=== PATIENT | female | born 1990 | race Caucasian/White ===

== ENCOUNTER 2018-08-02 09:32 | Emergency (ER) | payer SELFPAY ==
[2018-08-02 09:45] VITALS: TEMP 97.9
[2018-08-02] MEDS ORDERED: KETOROLAC TROMETHAMINE INJ 30 MG/ML VIAL IM ONE (09:53)
[2018-08-02] MEDS ORDERED: ALUM & MAG HYDROX-SIMETHICONE 30 ML, LIDOCAINE VISCOUS 2% 15 ML PO ONE ×2 (09:53)
[2018-08-02] MEDS ORDERED: LIDOCAINE HCL 2% (MOUTH-THROAT) 15 ML UD ONE (09:54)
[2018-08-02] MEDS ORDERED: ALUM & MAG HYDROX-SIMETHICONE 30 ML UD ONE (09:54)
--- NOTE | 2018-08-02 10:44 | RAD ---
EXAM DESCRIPTION: Abdomen Series CLINICAL HISTORY: ruq pain COMPARISON: None FINDINGS: Frontal view of the chest and supine and upright images of the abdomen were submitted. Cardiac silhouette is within normal limits. There is no focal parenchymal or pleural disease. There is no free air in the abdomen. There is no evidence of bowel obstruction. Moderate stool is in the colon. IMPRESSION: Constipation. Electronically signed by: Robbin Mason 08/02/2018 10:43 AM CDT
[2018-08-02] MEDS ORDERED: MAGNESIUM HYDROXIDE 30 ML UD PO ONE (10:48)
--- NOTE | 2018-08-02 10:51 | ED.PDOC ---
History of Present Illness - General Chief Complaint: General Stated Complaint: right sided rib/abdominal pain Time Seen by Provider: 08/02/18 09:47 Source: patient Exam Limitations: no limitations - History of Present Illness Initial Comments: the patient is a 28-year-old female presenting to the emergency room secondary to right upper abdominal pain for the last 36 hours. She has had some significant gas. No nausea or vomiting. Mild epigastric discomfort. No difficulty with oral intake. No diarrhea. No fevers. No cough or shortness of breath. No upper respiratory tract symptoms and no urinary symptoms. Timing/Duration: unsure Severity: moderate Improving Factors: nothing Worsening Factors: nothing Associated Symptoms: denies symptoms Allergies/Adverse Reactions: Allergies NO KNOWN ALLERGY Allergy (Verified 08/02/18 09:44) Home Medications: Ambulatory Orders NK [NK] 08/02/18 Review of Systems - Review of Systems Constitutional: States: no symptoms reported EENTM: States: no symptoms reported Respiratory: States: no symptoms reported Cardiology: States: no symptoms reported Gastrointestinal/Abdominal: States: abdominal pain Genitourinary: States: no symptoms reported Musculoskeletal: States: no symptoms reported Skin: States: no symptoms reported Neurological: States: no symptoms reported Endocrine: States: no symptoms reported All other Systems: No Change from Baseline Past Medical History (General) - Patient Medical History Hx Stroke: No Hx Congestive Heart Failure: No Hx Diabetes: No Surgical History: no surgical history - Vaccination History Hx Influenza Vaccination: Yes - Social History Hx Tobacco Use: Yes - Female History Patient is a Female of Child Bearing Age (10 -59 yrs old): Yes Family Medical History - Family History Mother Family History: Unknown Living Status: Still Living Physical Exam - Physical Exam General Appearance: Alert, No apparent distress Eye Exam: bilateral normal Ears, Nose, Throat: normal ENT inspection, normal pharynx Neck: full range of motion, supple Respiratory: lungs clear, normal breath sounds, no respiratory distress, no accessory muscle use Cardiovascular/Chest: normal peripheral pulses, regular rate, rhythm, no edema Peripheral Pulses: radial,right: 2+, radial,left: 2+, dorsalis pedis,right: 2+, dorsalis pedis,left: 2+ Gastrointestinal/Abdominal: soft, other - mild right upper quadrant discomfort palpation. No rebound or peritoneal signs. No skin changes. No palpable mass. 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 Blood work and x-ray as well as urinalysis are reassuring. X- ray does confirm significant constipation which will be targeted. The patient is given a dose of milk of magnesia here. I would recommend that she increase her fluid intake today and start taking MiraLAX daily for at least the next week. ER warnings were given. If she is still having discomfort after getting cleaned out then additional workup may be warranted. Keep routine follow-up with primary care doctor otherwise. - Results/Orders Results/Orders: acute abdominal series is negative for any acute pathology. significant constipation is seen. Laboratory Results - last 24 hr 08/02/18 08/02/18 08/02/18 10:06 10:06 10:06 WBC 6.9 RBC 4.10 L Hgb 12.8 Hct 38.1 MCV 92.9 MCH 31.2 H MCHC 33.6 RDW 12.3 Plt Count 269 MPV 7.7 Absolute Neuts (auto) 4.00 Absolute Lymphs (auto) 2.30 Absolute Monos (auto) 0.50 Absolute Eos (auto) 0.10 Absolute Basos (auto) 0.00 Neutrophils % 58.3 Lymphocytes % 33.1 Monocytes % 6.6 Eosinophils % 1.4 Basophils % 0.6 Sodium 137 Potassium 3.7 Chloride 103 Carbon Dioxide 29 Anion Gap 8.7 L BUN 6 L Creatinine 0.57 L BUN/Creatinine Ratio 10.5 Random Glucose 101 Serum Osmolality 271.6 L Lactic Acid 1.0 Calcium 9.0 Total Bilirubin 0.7 AST 19 ALT 9 L Alkaline Phosphatase 48 Creatine Kinase 56 CK-MB (CK-2) 0.6 CK-MB (CK-2) % Not Reportable Troponin I < 0.02 Serum Total Protein 6.5 Albumin 4.1 Globulin 2.4 Albumin/Globulin Ratio 1.7 Amylase 62 Lipase 35 Serum HCG, Qual Urine Color Urine Appearance Urine pH Ur Specific [place] Urine Protein Urine Glucose (UA) Urine Ketones Urine Blood Urine Nitrite Urine Bilirubin Urine Urobilinogen Ur Leukocyte Esterase Urine RBC Urine WBC Ur Epithelial Cells Urine Bacteria 08/02/18 08/02/18 10:06 10:06 WBC RBC Hgb Hct MCV MCH MCHC RDW Plt Count MPV Absolute Neuts (auto) Absolute Lymphs (auto) Absolute Monos (auto) Absolute Eos (auto) Absolute Basos (auto) Neutrophils % Lymphocytes % Monocytes % Eosinophils % Basophils % Sodium Potassium Chloride Carbon Dioxide Anion Gap BUN Creatinine BUN/Creatinine Ratio Random Glucose Serum Osmolality Lactic Acid Calcium Total Bilirubin AST ALT Alkaline Phosphatase Creatine Kinase CK-MB (CK-2) CK-MB (CK-2) % Troponin I Serum Total Protein Albumin Globulin Albumin/Globulin Ratio Amylase Lipase Serum HCG, Qual Negative Urine Color Yellow Urine Appearance Clear Urine pH 6.0 Ur Specific [place] 1.025 Urine Protein Negative Urine Glucose (UA) Negative Urine Ketones Trace Urine Blood Negative Urine Nitrite Negative Urine Bilirubin Small H Urine Urobilinogen 0.2 Ur Leukocyte Esterase Trace H Urine RBC 0 Urine WBC 3-5 H Ur Epithelial Cells 5-10 Urine Bacteria Rare Departure - Departure Clinical Impression: Constipation Qualifiers: Constipation type: unspecified constipation type Qualified Code(s): K59.00 - Constipation, unspecified Disposition: Discharge to Home or Self Care Condition: Fair Departure Forms: ED Discharge - Pt. Copy, Patient Portal Self Enrollment Instructions: Constipation, Adult (DC) Diet: regular diet - high-fiber Activity: increase activity as tolerated Referrals: Kyaw Andrade MD [Primary Care Provider] - 1-2 Weeks Home Medications: Ambulatory Orders NK [NK] 08/02/18 Additional Instructions: the patient is presenting secondary to about 36 hours of primarily right upper quadrant pain. Blood work and x-ray as well as urinalysis are reassuring. X- ray does confirm significant constipation which will be targeted. The patient is given a dose of milk of magnesia here. I would recommend that she increase her fluid intake today and start taking MiraLAX daily for at least the next week. ER warnings were given. If she is still having discomfort after getting cleaned out then additional workup may be warranted. Keep routine follow-up with primary care doctor otherwise.
[2018-08-02 11:05] VITALS: BP 106/72; O2SAT 96
== END 2018-08-02 11:04 | disposition home or self-care (01) ==
LOC: ER 09:32
DX: K59.00 Constipation, unspecified (principal); R10.11 Right upper quadrant pain; Z87.891 Personal history of nicotine dependence
CPT/HCPCS: 36415; 74019; 80053; 81001; 82150; 82550; 82553; 83605; 83690; 84484; 84703; 85025; J1885